=== PATIENT | male | born 1955 | race Caucasian/White ===

== ENCOUNTER 2021-12-02 10:47 | Outpatient (CLI) | payer MEDICARE, SELFPAY ==
[2021-12-02 11:59] LABS: Absolute Lymphocyte Count 2.04 X10^3/uL (0.83-4.51); Absolute Neutrophil Count 4.6 X10^3/uL (2.0-7.7); Basophil# 0.04 X10^3/uL; Basophil% 0.5 % (0-1); Eosinophil# 0.14 X10^3/uL; Eosinophils% 1.9 % (0-5); Hemoglobin 16.2 g/dL (13.0-16.5); Lymphocyte # 2.04 X10^3/ul (0.83-4.51); Lymphocyte % 27.3 % (19-41); Mean Corp Hgb Conc 32.4 g/dL (32-36); Mean Corpuscular Hgb 29.7 pg (27.0-32.0); Mean Corpuscular Volume 91.7 fL (80-94); Mean Platelet Vol. 10.2 fl (6.2-12.0); Monocyte# 0.57 X10^3/uL; Monocyte% 7.6 % (0-10); NRBC Flagged by Analyzer 0 % (0-5); Neutrophil # 4.63 X10^3/uL (2.7-7.7); Neutrophil % 62.2 % (47-70); Platelet Count 225 K/mm3 (150-450); RBC Distribution Width CV 12.7 % (11.6-14.6); RBC Distribution Width SD 42.2 fl (35.1-43.9); Red Blood Count 5.45 M/mm3 (4.6-6.2); White Blood Count 7.5 K/mm3 (4.4-11.0)
[2021-12-02 12:34] LABS: Hemoglobin A1c 6.1 % (3.8-5.6)
[2021-12-02 12:38] LABS: AST(SGOT) 17 U/L (15-37); Alanine Aminotransfer ALT/SGPT 28 U/L (16-61); Albumin, Serum 3.8 g/dL (3.2-5.0); Alkaline Phosphatase 89 U/L (45-117); Anion Gap 6 (5-15); BUN 14 mg/dL (7-18); BUN/Creat Ratio 13.1 RATIO (10-20); Calcium,Total 9.2 mg/dL (8.5-10.1); Chloride 105 mmol/L (98-107); Creatinine, Serum 1.07 mg/dL (0.70-1.30); EST Glomerular Filtration Rate 74 mL/min (>60); Est Glom Filt Rate - Afr Amer 89 mL/min (>60); Globulin 3.7 g/dL (2.2-4.2); Glucose 122 mg/dL (74-106); Potassium 4.2 mmol/L (3.5-5.1); Protein, Total 7.5 g/dL (6.4-8.2); Sodium Level 136 mmol/L (136-145); T4 Free Direct 0.94 ng/dL (0.76-1.46); Thyroid Stim Hormone (TSH) 4.02 uIU/mL (0.358-3.74)
[2021-12-04 13:20] LABS: Thyroid Peroxidase AB < 8 IU/mL (0-34)
== END 2021-12-02 23:59 | disposition home or self-care (01) ==
LOC: MFPLAB 10:49
PROVIDERS: PCP Family Medicine; Referring Provider Family Medicine; Visit Provider Family Medicine
DX: R73.09 Other abnormal glucose (principal); E04.1 Nontoxic single thyroid nodule
CPT/HCPCS: 36415; 80053; 83036; 84439; 84443; 85025; 86376

== ENCOUNTER 2021-12-10 08:18 | Outpatient (CLI) | payer MEDICARE, SELFPAY ==
--- NOTE | 2021-12-10 08:22 | US_ITS ---
INDICATION: palpable thyroid EXAMINATION: Ultrasound US Thyroid (eg thyroid, parathyroid, parotid) TECHNIQUE: Lopez scale and color doppler imaging was performed of the thyroid gland. COMPARISON: None. FINDINGS: RIGHT THYROID LOBE: 3.2 x 1.4 x 1.3 cm. Homogeneous echotexture with normal vascularity. [No thyroid nodules are present. LEFT THYROID LOBE: 3.2 x 0.9 x 1.0 cm. Homogeneous echotexture with normal vascularity. [No thyroid nodules are present. ISTHMUS: 3.3 mm. No thyroid nodules are present. US/Thyroid IMPRESSION: Negative thyroid ultrasound examination. Electronically Signed: Cecil Weiss, at 9:27 EDT ,
== END 2021-12-10 23:59 | disposition home or self-care (01) ==
LOC: US 08:20
PROVIDERS: PCP Family Medicine; Referring Provider Family Medicine; Visit Provider Family Medicine
DX: E04.1 Nontoxic single thyroid nodule (principal)
CPT/HCPCS: 76536

== ENCOUNTER → 2022-04-07 | Outpatient (CLI) | payer MEDICARE, SELFPAY ==
[2022-04-07 16:05] LABS: Hemoglobin A1c 5.9 % (3.8-5.6)
[2022-04-07 16:23] LABS: ALB/GLOB Ratio 1.2 RATIO (0.9-2.4); AST(SGOT) 18 U/L (15-37); Alanine Aminotransfer ALT/SGPT 25 U/L (16-61); Alkaline Phosphatase 86 U/L (45-117); Anion Gap 6 (5-15); BUN 17 mg/dL (7-18); Chloride 106 mmol/L (98-107); EST Glomerular Filtration Rate 80 mL/min (>60); Est Glom Filt Rate - Afr Amer 96 mL/min (>60); Globulin 3.2 g/dL (2.2-4.2); Glucose 100 mg/dL (74-106); Potassium 4.1 mmol/L (3.5-5.1); Protein, Total 7.2 g/dL (6.4-8.2); Sodium Level 139 mmol/L (136-145)
== END | disposition home or self-care (01) ==
LOC: MFPLAB 14:13
PROVIDERS: PCP Family Medicine; Referring Provider Family Medicine; Visit Provider Family Medicine
DX: R73.02 Impaired glucose tolerance (oral) (principal)
CPT/HCPCS: 36415; 80053; 83036

== ENCOUNTER → 2022-08-10 | Outpatient (CLI) | payer MEDICARE, SELFPAY ==
[2022-08-10 12:31] LABS: ALB/GLOB Ratio 1.1 RATIO (0.9-2.4); AST(SGOT) 20 U/L (15-37); Alanine Aminotransfer ALT/SGPT 25 U/L (16-61); Albumin, Serum 3.9 g/dL (3.2-5.0); Alkaline Phosphatase 74 U/L (45-117); Anion Gap 8 (5-15); BUN 14 mg/dL (7-18); BUN/Creat Ratio 13.3 RATIO (10-20); Chloride 105 mmol/L (98-107); Cholesterol 150 mg/dL (200); Creatinine, Serum 1.05 mg/dL (0.70-1.30); EST Glomerular Filtration Rate 75 mL/min (>60); Est Glom Filt Rate - Afr Amer 91 mL/min (>60); Globulin 3.7 g/dL (2.2-4.2); Glucose 93 mg/dL (74-106); High Density Lipoprotein 37 mg/dL; PSA,Total - Annual Screen 0.78 ng/mL (0.00-4.00); Potassium 4.1 mmol/L (3.5-5.1); Protein, Total 7.6 g/dL (6.4-8.2); Sodium Level 137 mmol/L (136-145); Triglycerides 99 mg/dL; Very Low Density Lipoprotein 20 mg/dL (5-40)
== END | disposition home or self-care (01) ==
LOC: MFPLAB 10:59
PROVIDERS: PCP Family Medicine; Referring Provider Family Medicine; Visit Provider Family Medicine
DX: Z00.00 Encounter for general adult medical examination without abnormal findings (principal); R73.02 Impaired glucose tolerance (oral); Z12.5 Encounter for screening for malignant neoplasm of prostate
CPT/HCPCS: 36415; 80053; 80061; 84153; G0103

== ENCOUNTER 2024-04-02 07:47 | Day surgery (SDC) | payer OTHER, MEDICARE, SELFPAY ==
[2024-04-02] VITALS (7 sets, daily range): BP systolic 95–125; BP diastolic 52–96; PULSE 59–68; RESP 16–18; TEMP 35.9–36.6; O2SAT 96–98; BMI 27.3
--- NOTE | 2024-04-02 08:21 | PRE.ANES_ITS ---
ASA Classification* ASA Classification ASA Classification: 2 Assessment & Plan Anesthesia* Anesthesia Assessment Anesthesia Assessment: Discussed sedation and/or anesthesia options, risks, benefits, and alternatives with patient/parents/legal guardian/POA. Questions invited. The patient/parents/legal guardian/POA seems to understand and agrees to proceed with anesthesia plan. Reviewed the physical assessment, medical history, allergy history and patient home medications list prior to surgery/procedure/anesthetic and documented any changes. Performed airway and anesthesia risk assessments. Anesthesia Type Anesthesia Type: MAC Anesthesia Focused Assessment* Airway Assessment Mouth opens: >3 cm Mallampati Score: II Focused Labs Anesthesia Preop lab: CBC WBC 7.5 K/mm3 (4.4-11.0) 12/02/21 10:50 RBC 5.45 M/mm3 (4.6-6.2) 12/02/21 10:50 Hgb 16.2 g/dL (13.0-16.5) 12/02/21 10:50 Hct 50.0 % (40-54) 12/02/21 10:50 Plt Count 225 K/mm3 (150-450) 12/02/21 10:50 CHEMISTRY Potassium 4.1 mmol/L (3.5-5.1) 08/10/22 11:01 Sodium 137 mmol/L (136-145) 08/10/22 11:01 BUN 14 mg/dL (7-18) 08/10/22 11:01 Creatinine 1.05 mg/dL (0.70-1.30) 08/10/22 11:01 Glucose 93 mg/dL (74-106) 08/10/22 11:01 TSH 4.02 uIU/mL (0.358-3.74) H 12/02/21 10:50 COAG Pre-Assessment Diagnosis/Proposed Procedure Planned Operative Procedure(s): CONOLONSCOPY Anesthesia History Anesthesia History - cutter inspector: Anesthesia History - cutter inspector Hx Hospitalization No 03/27/24 10:21 Any Problems With Anesthesia No 03/27/24 10:21 Cholinesterase deficiency No 03/27/24 10:21 You/Your Family Experience No 03/27/24 10:21 fever (hyperthermia) with Relationship Recent Exposure to Contagious No 11/25/23 08:02 Disease Does patient have nerve No 03/27/24 10:21 stimulator Patient instructed to have device shut off --Does patient have Pacemaker or ICD? When Was Last Pacemaker Check QUESTION #4 FULL TEXT: You/Your Family Experience fever (hyperthermia) with Anesthesia Last Oral Intake Last Oral intake: Last Oral Intake NPO since Meds taken in AM with sips of water? Meds patient instructed to take am of surgery PONV PONV - cutter inspector: PONV - cutter inspector Female No 03/27/24 10:21 HX of Motion Sickness No 03/27/24 10:21 HX of N/V After Surgery No 03/27/24 10:21 Non-Smoker Yes 03/27/24 10:21 Duration of Surgery greater No 03/27/24 10:21 than 60 minutes Number of Risk Factors 1 03/27/24 10:21 PONV Score Low Risk 03/27/24 10:21 Height & Weight Height & Weight: Anesthesia: Height & Weight Height 5 ft 6 in 01/27/24 10:29 Respiratory Assessment Respiratory Assessment - cutter inspector: Respiratory Tract Infection Hx - cutter inspector Hx Respiratory Tract Infection No 03/27/24 10:21 STOP Sleep Apnea STOP Sleep Apnea - cutter inspector: STOP Sleep Apnea - cutter inspector Hx Hypertension No 03/27/24 10:21 Hx Sleep Apnea No 03/27/24 10:21 CPAP BIPAP Do you snore loudly (louder No 03/27/24 10:21 than talking or can be heard Do you often feel tired/ No 03/27/24 10:21 fatigued/ sleepy during daytime? Has anyone observed you stop No 03/27/24 10:21 breathing during sleep? STOP Results Negative 03/27/24 10:21 QUESTION #5 FULL TEXT : Do you snore loudly (louder than talking or can be heard through closed doors)? Tobacco Use History Tobacco Use History - cutter inspector: Tobacco Use History - cutter inspector Tobacco Use Smoking Status Never smoker 03/27/24 10:21 Hx Tobacco Use No 03/27/24 10:21 Years Smoking Packs Smoked per Day Smoking Cessation Date was within the last 15 years Hx Smoking Cessation Date Hx Smoking Cessation Counseling Hematologic Medial History Hematologic Hx - cutter inspector: Hematologic Medical Hx - receiving lead Hx of Blood Transfusion No 03/27/24 10:21 Hx of Transfusion in last 3 No 03/27/24 10:21 Months Date of Last Transfusion (if within last 3 months) Ever experience any problems No 03/27/24 10:21 with transfusion(s)? Specify any problems Hx of Preganancy in last 3 N/A 03/27/24 10:21 Months Nurse Filling Out Transfusion SFRANTZ 03/27/24 10:21 & Questions: Date: 03/27/24 03/27/24 10:21 Time: 10:23 03/27/24 10:21 Patient unable to answer at this time (ie. confused, unrespo /Reproduction History /Reproductive History - cutter inspector: /Reproductive Hx- cutter inspector Hx Now No 03/27/24 10:21 Gestational Age (in weeks): EDC: Hx Hx Para Hx Section SAB No 03/27/24 10:21 Active Medications Active Medications: Current Medications Generic Name Dose Route Start Last Admin Trade Name Freq PRN Reason Stop Dose Admin Lactated Ringer's 1,000 mls @ 15 mls/hr 04/02/24 08:00 IV .Q48H JANE PFSH Medical History Arthritis Non-smoker Hx of colonic polyp Home Medications ?Medication ?Instructions ?Recorded ?Last Taken ?Type naproxen sodium 220 mg capsule 220 mg PO BID PRN pain 01/27/24 Unknown History (Aleve) glucosamine-chondroitin 250 mg-200 2 tab PO DAILY 03/27/24 Unknown History mg tablet (Osteo Bi-Flex) Allergy/AdvReac Type Severity Reaction Status Date / Time No Known Allergies Allergy Verified 04/02/24 08:16 Family History Uncle Colon cancer, Onset Age: 45 4 Mat. Uncles with colon cancer, 2 before age 50. Surgical History Hx of colonoscopy Social History household members: spouse current occupational status: employed Smoking Status: Never smoker alcohol intake: never substance use type: does not use Review of Systems (Anesthesia) ROS Narrative System reviewed and no additional complaints, except as documented.
[2024-04-02] MEDS: Lactated Ringers 1,000 ML 15 ML IV (08:30)
--- NOTE | 2024-04-02 08:57 | PCM.HP.STD ---
[facility] - General General Date of Admission: 04/02/24 Date of Service: 04/02/24 Chief Complaint: Surveillance colonoscopy HPI Narrative VICKIE SEVILLA, is a 68 M who presents today for surveillance colonoscopy. His last colonoscopy back in 2017 he had polyps at that time. He does not have any problems with his bowels now. He is not have any chest pain or shortness of breath. He has a past medical history of mild osteoarthritis. He does not take any medicines on a daily basis. [facility] Medical History Arthritis Non-smoker Hx of colonic polyp Home Medications ?Medication ?Instructions ?Recorded ?Last Taken ?Type naproxen sodium 220 mg capsule 220 mg PO BID PRN pain 01/27/24 Unknown History (Aleve) glucosamine-chondroitin 250 mg-200 2 tab PO DAILY 03/27/24 Unknown History mg tablet (Osteo Bi-Flex) Allergy/AdvReac Type Severity Reaction Status Date / Time No Known Allergies Allergy Verified 04/02/24 08:16 Family History Uncle Colon cancer, Onset Age: 45 4 Mat. Uncles with colon cancer, 2 before age 50. Surgical History Hx of colonoscopy Social History household members: spouse current occupational status: employed Smoking Status: Never smoker alcohol intake: never substance use type: does not use ROS Review of Systems ROS Unobtainable: other Constitutional Constitutional: Denies fatigue, fever(s), poor appetite, weight gain or weight loss ENT HEENT: Denies mouth lesions Cardiovascular Cardiovascular: Denies abdominal bloating, abdominal edema or abdominal pain Respiratory/Chest Respiratory/Chest: Denies change in mental status, change in phlegm color, chest congestion or chest tightness Gastrointestinal Gastrointestinal: Denies belching, bloating, change in bowel habits, change in stool character, chewing difficulty, coffee ground emesis, constipation, cramping, diarrhea, dyspepsia, dysphagia, early satiety, excessive flatus, fecal incontinence, heartburn, hematemesis, hematochezia, hemorrhoids, loose stools, melena, nausea, odynophagia, rectal bleeding, tenesmus, vomiting or weight changes Genitourinary Genitourinary: Denies abdominal discomfort, burning urination or itching Musculoskeletal Musculoskeletal: Reports as per HPI; Denies muscle weakness or myalgias Integumentary Integumentary: Denies jaundice Neurologic Neurologic: Denies lack of coordination or weakness Psychiatric Psychiatric: Denies confusion, depression, memory loss, mood swings, paranoia or suicidal ideation Endocrine Endocrinology: Denies systems reviewed and no addt'l complaints, except as documented Hematologic/Lymphatic Hematologic/Lymphatic: Denies anemia, easy bleeding, easy bruising or lymphadenopathy Allergic/Immunologic Allergic/Immunologic: Denies systems reviewed and no addt'l complaints, except as documented Vital Signs Vital Signs Vital Signs: 04/02/24 08:19 04/02/24 08:19 Temperature 97.6 F L Temperature Source Temporal Pulse Rate 63 Respiratory Rate 16 Respiratory Pattern Normal Blood Pressure 125/85 H Blood Pressure Mean 98 Blood Pressure Source Monitor Blood Pressure Position Semi-Fowlers Blood Pressure Location Left Arm Pulse Ox 97 Oxygen Delivery Method Room Air Weight Weight: 190 lb 7.67 oz Body Mass Index (BMI) 27.3 Physical Exam Const alert, oriented x3, no apparent distress, healthy appearing and well nourished General Appearance: cooperative, comfortable, well kempt and well developed Orientation / Consciousness: awake and oriented to person HEENT Head and Scalp: normocephalic and atraumatic Face and Sinus: normal facial exam Mouth: oral and palatal mucosa normal Eyes General Eye: normal appearance of both eyes Neck full ROM Lymph Lymphatic: no lymphadenopathy noted Chest inspection of chest normal Resp normal respiratory effort and no use of accessory muscles Cardio regular rate and regular rhythm GI normal to inspection, nondistended, normoactive bowel sounds, soft to palpation, non-tender, non-distended and no masses Auscultation: normoactive bowel sounds Palpation: soft Percussion: normal to percussion Rectal Exam: visual inspection normal and normal sphincter tone no CVA tenderness Back/Spine no CVA tenderness and normal ROM Extremity normal to inspection Peripheral Pulses: Yes pulses 2+ throughout Skin no rashes or lesions noted General Skin Exam: no breakdown, elasticity normal and turgor normal Neuro oriented x3 Motor Exam: strength 5/5 throughout Psych mental status grossly normal Appearance: grossly normal Attitude: calm Activity / Motor Behavior: appropriate eye contact Speech: normal speech Thought Process: normal thought process Thought Content: normal thought content Attention / Concentration: attention grossly intact Memory / Cognition: memory grossly intact Insight: insight good Judgement: judgement good Assessment & Plan Assessment/Plan (1) Encounter for screening for malignant neoplasm of colon: PLAN: He will undergo surveillance colonoscopy. He was explained alternatives, risk, benefits including not withstanding bleeding, infection, sepsis, perforation, need for emergent and . He will have an ASA of 3.
--- NOTE | 2024-04-02 09:00 | COLBX_PTH ---
PATIENT: VICKIE SEVILLA LOC: EN U#:[id number] AGE/SX: 68/M ROOM: RE04/02/[address]: Dr. Saad Artis DO : 1955 BED: DIS: 04/02/2024 SPEC #: [id number] RECD: 04/02/24 10:17 STATUS: OC TAHMINA #: [id number] KRYSTIN: 04/02/24 09:[address]: Saad Artis DEPT: SURGICAL PATHOLOGY RECD BY: Tr Gil ENTERED: 04/02/24 11:18 SP TYPE: COLON BX OTHR DR: Dr. Ramakrishna Kamara MD Tissues: Sigmoid colon biopsy Procedures: Surgery Specimen Level IV HEADER OPERATION: Colonoscopy with polypectomy PRE-OP DIAGNOSIS: Screening TISSUE SUBMITTED: Polyp sigmoid cold snare MICROSCOPIC DIAGNOSIS Sigmoid colon polyp, biopsy: Fragments of tubular adenoma. MIGUEL/ 04/03/2024 MICROSCOPIC DESCRIPTION Slides are reviewed. GROSS DESCRIPTION Received in fixative is one container labeled with the patient's name and designated Sigmoid polyp. The specimen consists of multiple irregular fragments of light le soft tissue that in aggregate measure 1.8 x 0.5 x 0.1 cm. The specimen is totally submitted in one cassette. MIGUEL/ 04/02/2024 TC:1 CPT:57919
--- NOTE | 2024-04-02 09:14 | PCM.POST.ANE ---
Anesthesia: Postop Eval I Current Vital Signs Temperature: 97.8 F Pulse Rate: 68 Blood Pressure: 112/52 Respiratory Rate: 18 Pulse Ox: 98 Assessment Airway patent: Yes Spontaneous unlabored respirations: Yes nausea: No Vomiting: No Anesthesia Complication: No Fluid Hydration Crystalloid volume administer (ml): 500 Total IV fluid infused: 500 Progress Note Anesthesia document: Postop Eval 1 completed: Yes
--- NOTE | 2024-04-02 09:29 | OP.COLON_ITS ---
Patient Name: Jose Armando Rose Procedure Date: 04/02/2024 8:59 AM Date of : 1955 Age: 68 Procedure: Colonoscopy Indications: High risk colon cancer surveillance: Personal history of colonic polyps Providers: Saad Artis DO Referring MD: Ramakrishna Kamara Medicines: Monitored Anesthesia Care Patient Profile: This is a 68 year old male. Refer to note in patient chart for documentation of history and physical. Last Colonoscopy: 5 years ago. Complications: No immediate complications. Procedure: Pre-Anesthesia Assessment: - Prior to the procedure, a History and Physical was performed, and patient medications and allergies were reviewed. The risks and benefits of the procedure and the sedation options and risks were discussed with the patient. All questions were answered and informed consent was obtained. Patient identification and proposed procedure were verified by the physician in the pre-procedure area. Mental Status Examination: alert and oriented. Prophylactic Antibiotics: The patient does not require prophylactic antibiotics. Prior Anticoagulants: The patient has taken no anticoagulant or antiplatelet agents. ASA Grade Assessment: III - A patient with severe systemic disease. After reviewing the risks and benefits, the patient was deemed in satisfactory condition to undergo the procedure. The anesthesia plan was to use monitored anesthesia care (MAC). Immediately prior to administration of medications, the patient was re-assessed for adequacy to receive sedatives. The heart rate, respiratory rate, oxygen saturations, blood pressure, adequacy of pulmonary ventilation, and response to care were monitored throughout the procedure. The physical status of the patient was re-assessed after the procedure. After I obtained informed consent, the scope was passed under direct vision. Throughout the procedure, the patient's blood pressure, pulse, and oxygen saturations were monitored continuously. The colonoscope was introduced through the anus and advanced to the cecum, identified by appendiceal orifice and ileocecal valve. The colonoscopy was performed without difficulty. The patient tolerated the procedure well. The quality of the bowel preparation was adequate. The ileocecal valve, appendiceal orifice, and rectum were photographed. Scope In: 9:07:12 AM Scope Withdrawal Time 0 hours 13 minutes 7 seconds Scope Out: 9:23:56 AM Total Procedure Duration Time 0 hours 16 minutes 44 seconds Findings: The perianal and digital rectal examinations were normal. Multiple small and large-mouthed diverticula were found in the recto-sigmoid colon, sigmoid colon and descending colon. Two sessile polyps were found in the sigmoid colon. The polyps were 1 to 2 mm in size. These polyps were removed with a cold snare. Resection and retrieval were complete. Verification of patient identification for the specimen was done. Estimated blood loss was minimal. No other significant abnormalities were identified in a careful examination of the remainder of the colon. Impression: - Diverticulosis in the recto-sigmoid colon, in the sigmoid colon and in the descending colon. - Two 1 to 2 mm polyps in the sigmoid colon, removed with a cold snare. Resected and retrieved. Recommendation: - Discharge patient to home. - Resume previous diet. - Continue present medications. - Await pathology results. - Repeat colonoscopy in 5 years for surveillance. Procedure Code(s): --- Professional --- 44268, Colonoscopy, flexible; with removal of tumor(s), polyp(s), or other lesion(s) by snare technique CPT copyright 2021 [employer]. All rights reserved. The codes documented in this report are preliminary and upon jewel corner brushing machine operator review may be revised to meet current compliance requirements. Saad Artis DO 04/02/2024 9:29:05 AM This report has been signed electronically. Number of Addenda: 0 Note Initiated On: 04/02/2024 8:59 AM
--- NOTE | 2024-04-02 09:29 | OP.CCLET_ITS ---
04/02/2024 Ramakrishna Kamara [address] [place] [address] Re : Colonoscopy procedure for Jose Armando Rose Dear Dr. Kamara This procedure was performed on Tuesday, April 02, 2024. My impressions and recommendations are as follows: Impressions : - Diverticulosis in the recto-sigmoid colon, in the sigmoid colon and in the descending colon. - Two 1 to 2 mm polyps in the sigmoid colon, removed with a cold snare. Resected and retrieved. Recommendations : - Discharge patient to home. - Resume previous diet. - Continue present medications. - Await pathology results. - Repeat colonoscopy in 5 years for surveillance. My findings are described in the full procedure note, which is enclosed. If I can be of further assistance, please feel free to contact me at . Sincerely, Saad Artis, 04/02/2024 9:29:05 AM This report has been signed electronically.
--- NOTE | 2024-04-02 10:06 | POSTOPAN2_ITS ---
Anesthesia Postop Eval I Sum Postop Eval Completion status Anesthesia document: Postop Eval 1 completed: Yes Anesthesia Postop Eval I Summary Anesthesia Postop Eval I Summary: Anesthesia Postop Eval I: Assessment Summary Airway patent Yes 04/02/24 09:26 REPAIRER FINISHED METAL.CSIR Spontaneous unlabored Yes 04/02/24 09:26 REPAIRER FINISHED METAL.CSIR respirations Mental status nausea No 04/02/24 09:26 REPAIRER FINISHED METAL.CSIR Vomiting No 04/02/24 09:26 REPAIRER FINISHED METAL.CSIR Anesthesia Postop Eval I: Fluid Summary Crystalloid volume administer 500 04/02/24 09:26 REPAIRER FINISHED METAL.CSIR (ml) Colloids volume administered ( ml) Blood Product volume administered (ml) Total IV fluid infused 500 04/02/24 09:26 REPAIRER FINISHED METAL.CSIR Anesthesia Postop Eval I: Summary Notes Anesthesia Complication No 04/02/24 09:26 REPAIRER FINISHED METAL.CSIR Anesthesia Complication Comment: Post-operative progress note Anesthesia: Postop Eval II Evaluation Mental status: Awake and Calm Pain Level: 0 nausea: No Vomiting: No Complications Anesthesia Complication: No
--- NOTE | 2024-04-02 10:06 | PCM.POSTANE2 ---
Anesthesia Postop Eval I Sum Postop Eval Completion status Anesthesia document: Postop Eval 1 completed: Yes Anesthesia Postop Eval I Summary Anesthesia Postop Eval I Summary: Anesthesia Postop Eval I: Assessment Summary Airway patent Yes 04/02/24 09:26 HIGH SCHOOL ASSISTANT FOOTBALL COACH.CSIR Spontaneous unlabored Yes 04/02/24 09:26 HIGH SCHOOL ASSISTANT FOOTBALL COACH.CSIR respirations Mental status nausea No 04/02/24 09:26 HIGH SCHOOL ASSISTANT FOOTBALL COACH.CSIR Vomiting No 04/02/24 09:26 HIGH SCHOOL ASSISTANT FOOTBALL COACH.CSIR Anesthesia Postop Eval I: Fluid Summary Crystalloid volume administer 500 04/02/24 09:26 HIGH SCHOOL ASSISTANT FOOTBALL COACH.CSIR (ml) Colloids volume administered ( ml) Blood Product volume administered (ml) Total IV fluid infused 500 04/02/24 09:26 HIGH SCHOOL ASSISTANT FOOTBALL COACH.CSIR Anesthesia Postop Eval I: Summary Notes Anesthesia Complication No 04/02/24 09:26 HIGH SCHOOL ASSISTANT FOOTBALL COACH.CSIR Anesthesia Complication Comment: Post-operative progress note Anesthesia: Postop Eval II Evaluation Mental status: Awake and Calm Pain Level: 0 nausea: No Vomiting: No Complications Anesthesia Complication: No
== END 2024-04-02 10:04 | disposition home or self-care (01) ==
LOC: EN 07:48 → AC 07:49
PROVIDERS: PCP Family Medicine; Referring Provider Family Medicine; Visit Provider Internal Medicine Gastroenterology
PROC: 0DJD8ZZ Inspection of Lower Intestinal Tract, Via Natural or Artificial Opening Endoscopic (ICD-10-PCS; CPT 45378; principal; 2024-04-02 08:55)
DX: Z12.11 Encounter for screening for malignant neoplasm of colon (principal); K57.30 Diverticulosis of large intestine without perforation or abscess without bleeding; K63.5 Polyp of colon; Z86.010 Personal history of colon polyps
CPT/HCPCS: 45385; 88305; J7120; J2405

== ENCOUNTER → 2024-09-13 | Outpatient (CLI) | payer OTHER, MEDICARE, SELFPAY ==
[2024-09-13 17:36] LABS: Absolute Lymphocyte Count 2.94 X10^3/uL (0.83-4.51); Basophil# 0.03 X10^3/uL; Basophil% 0.4 % (0-1); Eosinophil# 0.14 X10^3/uL; Eosinophils% 1.8 % (0-5); Lymphocyte # 2.94 X10^3/ul (0.83-4.51); Lymphocyte % 37.5 % (19-41); Mean Corpuscular Hgb 29.1 pg (27.0-32.0); Mean Corpuscular Volume 90.9 fL (80-94); Mean Platelet Vol. 10.4 fl (6.2-12.0); Monocyte% 8.9 % (0-10); NRBC Flagged by Analyzer 0 % (0-5); Neutrophil # 4.01 X10^3/uL (2.7-7.7); Neutrophil % 51.1 % (47-70); Platelet Count 230 K/mm3 (150-450); RBC Distribution Width CV 12.8 % (11.6-14.6); RBC Distribution Width SD 42.6 fl (35.1-43.9); White Blood Count 7.8 K/mm3 (4.4-11.0)
[2024-09-13 17:51] LABS: ALB/GLOB Ratio 1.1 RATIO (0.9-2.4); AST(SGOT) 24 U/L (15-37); Alanine Aminotransfer ALT/SGPT 33 U/L (16-61); Albumin, Serum 4.1 g/dL (3.2-5.0); Alkaline Phosphatase 76 U/L (45-117); Anion Gap 5 (5-15); BUN 18 mg/dL (7-18); BUN/Creat Ratio 17.6 RATIO (10-20); Calcium,Total 9.2 mg/dL (8.5-10.1); Chloride 106 mmol/L (98-107); Cholesterol 167 mg/dL (200); Creatinine, Serum 1.02 mg/dL (0.70-1.30); EST Glomerular Filtration Rate 77 mL/min (>60); Est Glom Filt Rate - Afr Amer 93 mL/min (>60); Globulin 3.6 g/dL (2.2-4.2); Glucose 93 mg/dL (74-106); High Density Lipoprotein 43 mg/dL; PSA,Total - Annual Screen 0.63 ng/mL (0.00-4.00); Potassium 3.8 mmol/L (3.5-5.1); Protein, Total 7.7 g/dL (6.4-8.2); Sodium Level 137 mmol/L (136-145); Triglycerides 88 mg/dL; Very Low Density Lipoprotein 18 mg/dL (5-40)
== END | disposition home or self-care (01) ==
LOC: MFPLAB 15:43
PROVIDERS: PCP Family Medicine; Referring Provider Family Medicine; Visit Provider Family Medicine
DX: Z00.00 Encounter for general adult medical examination without abnormal findings (principal); Z12.5 Encounter for screening for malignant neoplasm of prostate; R73.02 Impaired glucose tolerance (oral)
CPT/HCPCS: 36415; 80053; 80061; 83036; 84153; 85025; G0103